=== PATIENT | female | born 2000 | race American Indian/Alaskan Native ===

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

== ENCOUNTER 2021-12-18 11:23 | Emergency (ER) | payer SELFPAY | END 2021-12-18 11:30 | disposition left against medical advice (07) | LOC: ED 11:23 | DX: O03.9 Complete or unspecified spontaneous abortion without complication (principal); Z53.21 Procedure and treatment not carried out due to patient leaving prior to being seen by health care provider; Z3A.00 Weeks of gestation of pregnancy not specified ==